=== PATIENT | male | born 1960 ===

== ENCOUNTER 2025-03-23 15:59 | Outpatient (CLI) | payer MEDICARE, OTHER, SELFPAY ==
--- NOTE | 2025-03-23 14:52 | DI.RAD_ITS ---
Exam(s) XR KNEE LT 4V AP,LAT,MARGIE,PAT EXAM: XR KNEE LT 4V AP,LAT,MARGIE,PAT CLINICAL HISTORY: LEFT KNEE PAIN. TECHNIQUE: 2D digital imaging was performed. Three views. COMPARISON: No exams were available for comparison FINDINGS: BONES: No acute fracture is present. No bony destructive lesion is seen. JOINTS: There is severe narrowing of the femoral tibial and patellofemoral joint spaces. There is prominent periarticular spurring throughout. There is lateral subluxation of the tibia with respect to the distal femur and varus angulation at the knee. There are multiple bony densities consistent with loose bodies. There is a small moderate size joint effusion. SOFT TISSUE: Normal. IMPRESSION: End-stage degenerative changes of the left knee. DATA REPOSITORY: RADIATION DOSE DELIVERED:
== END 2025-03-23 16:00 | disposition home or self-care (01) ==
LOC: DIORS 15:59
PROVIDERS: Visit Provider Student in an Organized Health Care Education/Training Program
DX: M17.12 Unilateral primary osteoarthritis, left knee (principal); R60.0 Localized edema; G89.29 Other chronic pain
CPT/HCPCS: 99203; 73564